=== PATIENT | female | born 1940 | race Caucasian/White ===

== ENCOUNTER 2019-04-30 05:31 | Inpatient (IN) | payer MEDICARE, BC ==
[2019-04-22 15:19] LABS: CLARITY,URINE SLIGHTLY CLOUDY (Clear); COLOR,URINE STRAW (Yellow); GLUCOSE, URINE NEGATIVE (Neg); KETONES,URINE NEGATIVE (Neg); LEUKOCYTE ESTERASE ,URINE TRACE (Neg); NITRITES, URINE POSITIVE (Neg); OCCULT BLOOD,URINE NEGATIVE (Neg); PH,URINE 5.5 (4.8-8.0); PROTEIN,URINE NEGATIVE (Neg); UROBILINOGEN,URINE 0.2 E.U/dL (0.2-1.0)
[2019-04-22 15:20] LABS: BASOPHILS # (AUTO) 0.1 X10'3 (0-0.2); EOSINOPHILS # (AUTO) 0.1 X10'3 (0-0.9); EOSINOPHILS % (AUTO) 1.7 % (0-6); LYMPHOCYTES # (AUTO) 1.6 X10'3 (1.1-4.8); LYMPHOCYTES % (AUTO) 21.3 % (21-51); MEAN CORPUSCULAR HEMOGLOBIN 29.6 PG (27.0-31.0); MEAN CORPUSCULAR HGB CONC 33.2 g/dL (33.0-36.5); MEAN CORPUSCULAR VOLUME 89.1 FL (78-98); MONOCYTES # (AUTO) 0.7 X10'3 (0-0.9); MONOCYTES % (AUTO) 9.4 % (2-12); NEUTROPHILS # (AUTO) 4.9 X10'3 (1.8-7.7); NEUTROPHILS % (AUTO) 66.6 % (42-75); PRE OP HEMATOCRIT 40.2 % (35.0-45.0); PRE OP HEMOGLOBIN 13.3 g/dL (12.0-16.0); PRE OP PLATELET COUNT 272 X10'3 (140-440); RED BLOOD COUNT 4.51 X10'6 (4.20-5.60); RED CELL DISTRIBUTION WIDTH 13.6 % (11.5-14.5)
[2019-04-22 15:22] LABS: UA COLLECTION TYPE CLN CATCH MIDSTREAM
[2019-04-22 15:24] LABS: BACTERIA,URINE 3+ /HPF (Neg); MUCUS STRANDS FEW /LPF (Neg); SQUAMOUS EPITHELIAL CELL,UR MODERATE /LPF (FEW)
[2019-04-22 15:25] LABS: RBC,URINE 0-2 /HPF (0-2); TRANSITIONAL EPI CELLS,URINE FEW /HPF; WBC CLUMPS,URINE FEW /HPF (NEGATIVE); WBC,URINE 0-4 /HPF (0-4)
[2019-04-22 15:32] LABS: PRE OP PROTIME 10.3 SECONDS (9.0-12.0)
[2019-04-22 15:34] LABS: ALBUMIN 3.6 G/DL (3.4-5.0); ALBUMIN/GLOBULIN RATIO 0.9 (1.1-1.5); ALKALINE PHOSPHATASE 88 IU/L (46-116); BLOOD UREA NITROGEN 15 MG/DL (7-18); BUN/CREATININE RATIO 17.2 (6.6-38.0); CHLORIDE 105 MMOL/L (99-107); CREATININE 0.87 MG/DL (0.40-0.90); PRE OP ALT 28 U/L (30-65); PRE OP ANION GAP 10 (8-16); PRE OP AST 21 U/L (10-37); PRE OP BILIRUB, TOTAL 0.2 MG/DL (0.0-1.0); PRE OP GLUCOSE 103 MG/DL (70-104); PRE OP POTASSIUM 3.9 MMOL/L (3.4-5.1); PRE OP SODIUM 142 MMOL/L (135-145); TOTAL CARBON DIOXIDE 27.3 MMOL/L (24-32); TOTAL PROTEIN 7.8 G/DL (6.4-8.2); eGFR 63 ML/MIN
[2019-04-30] VITALS (18 sets, daily range): BP systolic 109–175; BP diastolic 58–98
[~2019-04-30] VITALS: Ht 160 cm; Wt 86.2 kg
[~2019-04-30 05:31] MED LIST: ASPI81TA44 PO; DOCUMENT DATE & TIME OF BETA-BLOCKER PO ONE; LANS15CA18 PO; LISI-604 PO; METO50TA16 PO; PRAV40TA3 PO; cefazolin/dext.iso 2gm/50ml 50 ML IV ONE; famotidine 20mg tablet PO ONE; ringers solution, lacted 1,000 ML IV SCH; vancomycin inj 1,500 MG in normal saline 300ml IV soln IV ONE
[2019-04-30] MEDS ORDERED: LIDOcaine 1% (10mg/ml) 2ml vial ONE (06:21)
[2019-04-30] MEDS ORDERED: ketorolac trometh. 30mg/ml inj. ONE (06:49)
[2019-04-30] MEDS ORDERED: ROPIVAcaine 0.5% (5mg/ml) 30ml vial ONE ×2 (06:50)
[2019-04-30] MEDS ORDERED: tetracaine 1% (10mg/ml) pres. free inj. ONE (07:19)
[2019-04-30] MEDS ORDERED: fentaNYL/PF 50MCG/1 ML 2ML syringe ONE ×3 (07:22→09:28)
[2019-04-30] MEDS ORDERED: sevoflurane 250ml liquid IH ONE (07:23)
[2019-04-30] MEDS ORDERED: dexamethasone sod phosphate 10mg/ml inj ONE (07:23)
[2019-04-30] MEDS ORDERED: MIDAZolam 5mg/5ml vial ONE (07:23)
[2019-04-30] MEDS ORDERED: propofol inj 20 ML IV ONE (07:51)
[2019-04-30] MEDS ORDERED: rocuronium 10mg/ml inj IV ONE (08:24)
[2019-04-30] MEDS ORDERED: ringers solution, lacted 1,000 ML IV SCH (08:39)
[2019-04-30] MEDS ORDERED: ondansetron/PF 4mg/2ml inj IV PRN ×2 (08:40→11:00)
[2019-04-30] MEDS ORDERED: morphine 4 MG/ML inj SYRINge IV PRN ×2 (08:40)
[2019-04-30] MEDS ORDERED: meperidine/PF 25mg/ml syringe IV PRN ×3 (08:40)
[2019-04-30] MEDS ORDERED: proCHLORperazine 10 MG/2 ml inj IV PRN (08:40)
[2019-04-30] MEDS ORDERED: ceFAZolin 1000mg inj ONE (10:10)
[2019-04-30] MEDS ORDERED: acetaminophen 1,000mg/100ml IV 100 ML IV ONE (10:12)
[2019-04-30] MEDS ORDERED: ondansetron/PF 4mg/2ml inj ONE (10:17)
--- NOTE | 2019-04-30 10:50 | NUR ---
Received from OR via BED , accompanied by Anesthesiologist DR emanuel and report given by Anesthesiolgist. PATIENT WAKING UP, DENIES PAIN, V/S WNL, NEUROVASCULAR CHECKS INTACT, 18G PIV LUE , DRESSING TO left hip CDI and hv w/ minimal output and W/ COLD POWDER PACK AND IMMOBILIZER wedge pillow W/ SCD ON. F/C DRAINING CLEAR YELLOW URINE. .
[2019-04-30] MEDS ORDERED: bisacodyl 10mg suppository rectal RC PRN (11:00)
[2019-04-30] MEDS ORDERED: acetaminophen 325mg tablet PO PRN (11:00)
[2019-04-30] MEDS ORDERED: CADD PCA waste documentation MC PRN (11:00)
[2019-04-30] MEDS ORDERED: magnesium hydroxide 30ml (MOM) UD suspension PO PRN (11:00)
[2019-04-30] MEDS ORDERED: mag hydrox/Alum hydrox/simeth 30ml oral suspension PO PRN (11:00)
[2019-04-30] MEDS ORDERED: diphenhydrAMINE 25mg capsule PO PRN ×2 (11:00)
[2019-04-30] MEDS ORDERED: naloxone 0.4 mg/ml inj IV PRN (11:00)
[2019-04-30] MEDS ORDERED: HYDROmorphone/NS 1 mg/ml CADD 50 ML IV SCH (11:34)
[2019-04-30] MEDS: HYDROmorphone/NS 1 mg/ml CADD 50 ML IV SCH ×6 (11:52→23:00)
--- NOTE | 2019-04-30 12:00 | NUR ---
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 F/C DRAINING CLEAR YELLOW URINE. tele on, . PATIENT TAKEN TO WITH ALL BELONGINGS AND HOOKED UP TO MONITORS IN ROOM AND REPORT GIVEN TO LOGISTICS ASSOCIATE WHO HAS TAKEN OVER PATIENT CARE.
--- NOTE | 2019-04-30 12:00 | NUR ---
ASSUMED CARE, RECEIVED REPORT FROM ZACHERY RN, PT RESTING COMFORTABLY, POST OP VITALS STARTED, WILL CONTINUE TO MONITOR.
[2019-04-30] MEDS: gabapentin 300mg capsule PO SCH ×2 (13:00→20:08)
[2019-04-30] MEDS: acetaminophen 325mg tablet PO SCH ×2 (14:00→20:07)
[2019-04-30] MEDS: potassium cl 20mEq in 1/2 NS 1,000 ML IV SCH ×2 (16:29→18:58)
[2019-04-30] MEDS: ceFAZolin 1GM/D5W- ADD-VANTAGE 50 ML IV SCH (16:29)
--- NOTE | 2019-04-30 18:08 | NUR ---
REPORT GIVEN TO JILLIAN [place] RN
--- NOTE | 2019-04-30 18:10 | NUR ---
Received report from Cate MAYES & Talia student nurse. assumed care of patient.
--- NOTE | 2019-04-30 18:11 | NUR ---
Student documentation: I have reviewed and agree with all interventions, assessments performed and documented by ANALIA NAVARRO.
--- NOTE | 2019-04-30 18:11 | NUR ---
Student Medication Administration: For this medication-pass time frame, all medication were reviewed, dispensed, administered and documented per hospital policy by ANALIA NAVARRO.
[2019-04-30] MEDS ORDERED: vancomycin/NS 1 GM ADD-VANTAGE 250 ML IV SCH (20:00)
[2019-04-30] MEDS: sennosides 8.6mg tablet PO SCH (20:07)
[2019-04-30] MEDS: pravastatin 40mg tablet PO SCH (20:08)
[2019-04-30] MEDS: metoprolol tartrate 50mg tablet PO SCH (20:08)
[2019-04-30] MEDS: sennosides/docusate sodium tablet PO SCH (20:08)
[2019-05-01] MEDS: ceFAZolin 1GM/D5W- ADD-VANTAGE 50 ML IV SCH (00:03)
[2019-05-01] MEDS: HYDROmorphone/NS 1 mg/ml CADD 50 ML IV SCH ×7 (01:00→13:00)
[2019-05-01] MEDS: acetaminophen 325mg tablet PO SCH ×4 (01:36→21:18)
[2019-05-01 02:00] VITALS: BP_SYST 100; BP_SYST 140; BP_DIAS 52; BP_DIAS 59
[2019-05-01] MEDS: potassium cl 20mEq in 1/2 NS 1,000 ML IV SCH ×3 (03:02→21:15)
[2019-05-01 06:00] VITALS: BP 112/56
--- NOTE | 2019-05-01 06:10 | NUR ---
Patient in room ORTHO 4014. I have received report from JILLIAN MAYES and had the opportunity to ask questions and assume patient care.
[2019-05-01 06:13] LABS: BASOPHILS % (AUTO) 0.1 % (0-1); EOSINOPHILS % (AUTO) 0 % (0-6); HEMATOCRIT 29.2 % (35.0-45.0); LYMPHOCYTES % (AUTO) 9.3 % (21-51); MEAN CORPUSCULAR HEMOGLOBIN 30.4 PG (27.0-31.0); MEAN CORPUSCULAR HGB CONC 34.2 g/dL (33.0-36.5); MEAN CORPUSCULAR VOLUME 88.8 FL (78-98); MONOCYTES # (AUTO) 1.4 X10'3 (0-0.9); MONOCYTES % (AUTO) 13.3 % (2-12); NEUTROPHILS # (AUTO) 8.2 X10'3 (1.8-7.7); NEUTROPHILS % (AUTO) 77.3 % (42-75); PLATELET COUNT 204 X10'3 (140-440); RED BLOOD COUNT 3.29 X10'6 (4.20-5.60); RED CELL DISTRIBUTION WIDTH 13.8 % (11.5-14.5); WHITE BLOOD COUNT 10.7 X10'3 (4.5-11.0)
--- NOTE | 2019-05-01 06:15 | NUR ---
Gave report to Cate MAYES & Talia student nurse.
[2019-05-01 07:26] LABS: ANION GAP 8 (8-16); CHLORIDE 105 MMOL/L (99-107); POTASSIUM 4.8 MMOL/L (3.5-5.1); SODIUM 138 MMOL/L (135-145); TOTAL CARBON DIOXIDE 25.4 MMOL/L (24-32)
--- NOTE | 2019-05-01 08:10 | NUR ---
HEMOVAC CAME APART WHILE WORKING WITH THERAPY. REMOVED THE REST OF THE DRAIN FROM THE PATIENT. WILL CONTINUE TO MONITOR.
[2019-05-01] MEDS: gabapentin 300mg capsule PO SCH ×3 (09:07→21:18)
[2019-05-01] MEDS: pantoprazole 40mg Tablet.DR PO SCH (09:07)
[2019-05-01] MEDS: metoprolol tartrate 50mg tablet PO SCH ×2 (09:07→21:17)
[2019-05-01] MEDS: sennosides/docusate sodium tablet PO SCH ×2 (09:08→21:20)
[2019-05-01] MEDS: enoxaparin 40mg/0.4ml syringe SQ SCH (09:10)
[2019-05-01 10:00] VITALS: BP 110/62
[2019-05-01 14:00] VITALS: BP 112/51
[2019-05-01] MEDS ORDERED: oxyCODONE/APAP 5-325mg tablet PO PRN (14:15)
--- NOTE | 2019-05-01 17:55 | NUR ---
Student documentation: I have reviewed and agree with all interventions, assessments performed and documented by ANALIA NAVARRO. Student Medication Administration: For this medication-pass time frame, all medication were reviewed, dispensed, administered and documented per hospital policy by ANALIA NAVARRO.
[2019-05-01 18:00] VITALS: BP 99/50
--- NOTE | 2019-05-01 18:08 | NUR ---
Problems reprioritized. Patient report given, questions answered & plan of care reviewed with SLAVA Martínez RN .
--- NOTE | 2019-05-01 19:40 | NUR ---
Patient in room ORTHO 4014. I have received report from GERBER Esposito and had the opportunity to ask questions and assume patient care.
[2019-05-01] MEDS: sennosides 8.6mg tablet PO SCH (21:17)
[2019-05-01] MEDS: pravastatin 40mg tablet PO SCH (21:18)
[2019-05-01 22:00] VITALS: BP 117/44
[2019-05-02] MEDS: acetaminophen 325mg tablet PO SCH (02:00)
[2019-05-02] MEDS: potassium cl 20mEq in 1/2 NS 1,000 ML IV SCH (02:58)
[2019-05-02 06:00] VITALS: BP 104/65
--- NOTE | 2019-05-02 06:15 | NUR ---
Patient in room ORTHO 4014. I have received report from SLAVA MAYES and had the opportunity to ask questions and assume patient care.
--- NOTE | 2019-05-02 06:24 | NUR ---
Problems reprioritized. Patient report given, questions answered & plan of care reviewed with GERBER Esposito.
[2019-05-02 06:40] LABS: BASOPHILS % (AUTO) 0.1 % (0-1); EOSINOPHILS % (AUTO) 0.2 % (0-6); HEMATOCRIT 27.3 % (35.0-45.0); HEMOGLOBIN 9.1 g/dl (12.0-16.0); LYMPHOCYTES # (AUTO) 1.2 X10'3 (1.1-4.8); LYMPHOCYTES % (AUTO) 9.6 % (21-51); MEAN CORPUSCULAR HEMOGLOBIN 29.7 PG (27.0-31.0); MEAN CORPUSCULAR HGB CONC 33.3 g/dL (33.0-36.5); MEAN PLATELET VOLUME 8.3 FL (7.4-10.4); MONOCYTES # (AUTO) 1.5 X10'3 (0-0.9); MONOCYTES % (AUTO) 11.8 % (2-12); NEUTROPHILS # (AUTO) 9.8 X10'3 (1.8-7.7); NEUTROPHILS % (AUTO) 78.3 % (42-75); PLATELET COUNT 198 X10'3 (140-440); RED BLOOD COUNT 3.07 X10'6 (4.20-5.60); RED CELL DISTRIBUTION WIDTH 14.1 % (11.5-14.5); WHITE BLOOD COUNT 12.5 X10'3 (4.5-11.0)
[2019-05-02] MEDS: gabapentin 300mg capsule PO SCH ×3 (07:39→20:34)
[2019-05-02] MEDS: pantoprazole 40mg Tablet.DR PO SCH (07:39)
[2019-05-02] MEDS: sennosides/docusate sodium tablet PO SCH ×2 (07:39→19:21)
[2019-05-02] MEDS: metoprolol tartrate 50mg tablet PO SCH ×2 (07:40→19:21)
[2019-05-02] MEDS: enoxaparin 40mg/0.4ml syringe SQ SCH (07:40)
[2019-05-02 10:00] VITALS: BP 100/46
--- NOTE | 2019-05-02 12:36 | NUR ---
Joint replacement consult: Pt POD#2 s/p L ISAURO per MD note. PO improved to 75-100% past 2 days meeting healing needs. LBM 04/30. Labs WNL. No current nutrition concerns at this time. Will continue to monitor. Addendum: 05/02/19 at [address] Amended: Links added.
[2019-05-02 17:00] VITALS: BP 100/46
--- NOTE | 2019-05-02 18:10 | NUR ---
Problems reprioritized. Patient report given, questions answered & plan of care reviewed with GORDO MAYES.
[2019-05-02 19:20] VITALS: BP 129/57
[2019-05-02 20:00] VITALS: BP 114/49
[2019-05-02] MEDS: pravastatin 40mg tablet PO SCH (20:34)
[2019-05-02] MEDS: sennosides 8.6mg tablet PO SCH (20:34)
[2019-05-03] MEDS: oxyCODONE/APAP 5-325mg tablet PO PRN ×2 (05:29→20:33)
[2019-05-03 06:00] VITALS: BP 116/48
--- NOTE | 2019-05-03 06:05 | NUR ---
Patient in room ORTHO 4014. I have received report from GORDO MAYES and had the opportunity to ask questions and assume patient care.
--- NOTE | 2019-05-03 06:16 | NUR ---
Problems reprioritized. Patient report given, questions answered & plan of care reviewed with Cate MAYES.
[2019-05-03 07:00] LABS: BASOPHILS % (AUTO) 0.2 % (0-1); EOSINOPHILS # (AUTO) 0.1 X10'3 (0-0.9); EOSINOPHILS % (AUTO) 0.4 % (0-6); HEMATOCRIT 26.8 % (35.0-45.0); LYMPHOCYTES # (AUTO) 1.6 X10'3 (1.1-4.8); LYMPHOCYTES % (AUTO) 13.1 % (21-51); MEAN CORPUSCULAR HEMOGLOBIN 29.9 PG (27.0-31.0); MEAN CORPUSCULAR HGB CONC 33.7 g/dL (33.0-36.5); MEAN CORPUSCULAR VOLUME 88.6 FL (78-98); MEAN PLATELET VOLUME 7.8 FL (7.4-10.4); MONOCYTES # (AUTO) 1.2 X10'3 (0-0.9); MONOCYTES % (AUTO) 9.7 % (2-12); NEUTROPHILS # (AUTO) 9.6 X10'3 (1.8-7.7); NEUTROPHILS % (AUTO) 76.6 % (42-75); PLATELET COUNT 215 X10'3 (140-440); RED BLOOD COUNT 3.02 X10'6 (4.20-5.60); WHITE BLOOD COUNT 12.5 X10'3 (4.5-11.0)
[2019-05-03] MEDS: gabapentin 300mg capsule PO SCH ×3 (08:48→20:32)
[2019-05-03] MEDS: metoprolol tartrate 50mg tablet PO SCH ×2 (08:51→20:37)
[2019-05-03] MEDS: pantoprazole 40mg Tablet.DR PO SCH (08:52)
[2019-05-03] MEDS: sennosides/docusate sodium tablet PO SCH ×2 (08:52→20:32)
[2019-05-03] MEDS: enoxaparin 40mg/0.4ml syringe SQ SCH (08:52)
[2019-05-03 10:00] VITALS: BP_SYST 103; BP_SYST 113; BP_DIAS 45; BP_DIAS 74
[2019-05-03 18:00] VITALS: BP 111/54
--- NOTE | 2019-05-03 18:05 | NUR ---
Problems reprioritized. Patient report given, questions answered & plan of care reviewed with JAMI MAYES.
[2019-05-03] MEDS: sennosides 8.6mg tablet PO SCH (20:32)
[2019-05-03] MEDS: pravastatin 40mg tablet PO SCH (20:41)
[2019-05-03 22:00] VITALS: BP 106/48
[2019-05-04] MEDS: oxyCODONE/APAP 5-325mg tablet PO PRN (05:25)
--- NOTE | 2019-05-04 06:19 | NUR ---
Problems reprioritized. Patient report given, questions answered & plan of care reviewed with GERBER PARDO.
[2019-05-04 06:45] VITALS: BP 122/52
[2019-05-04 07:10] VITALS: BP 113/58
[2019-05-04] MEDS: metoprolol tartrate 50mg tablet PO SCH (07:13)
[2019-05-04] MEDS: sennosides/docusate sodium tablet PO SCH (07:14)
[2019-05-04] MEDS: pantoprazole 40mg Tablet.DR PO SCH (07:15)
[2019-05-04] MEDS: gabapentin 300mg capsule PO SCH ×2 (07:15→12:45)
[2019-05-04] MEDS: enoxaparin 40mg/0.4ml syringe SQ SCH (07:16)
[2019-05-04 10:19] VITALS: BP 133/58
== END 2019-05-04 14:20 | DRG 470 ==
LOC: PAS IN 05:31 → EDSTATUS 07:30 → ORTHO 4S 12:00
PROVIDERS: ADMIT Orthopaedic Surgery; ATTEND Orthopaedic Surgery
PROC: 0SRB0J9 Replacement of Left Hip Joint with Synthetic Substitute, Cemented, Open Approach (ICD-10-PCS; principal; 2019-04-30 07:23)
DX: M16.12 Unilateral primary osteoarthritis, left hip (principal); D62 Acute posthemorrhagic anemia; I10 Essential (primary) hypertension; I48.91 Unspecified atrial fibrillation; Z96.652 Presence of left artificial knee joint; K21.9 Gastro-esophageal reflux disease without esophagitis; E78.5 Hyperlipidemia, unspecified; M17.11 Unilateral primary osteoarthritis, right knee; E66.8 Other obesity; Z96.641 Presence of right artificial hip joint; Z88.2 Allergy status to sulfonamides; Z90.49 Acquired absence of other specified parts of digestive tract; Z90.710 Acquired absence of both cervix and uterus; Z80.9 Family history of malignant neoplasm, unspecified
CPT/HCPCS: 36415; 73502; 76000; 80051; 80053; 81001; 82948; 85025; 85610; 85730; 86885; 86900; 86901; 87077; 87081; 87088; 87186; 93005; 97110; 97112; 97116; 97161; 97530; A6250; A6258; A6446; A6449; A6455; A7000; C1758; C1776; G0378; J0131; J0690; J1100; J1170; J1644; J1650; J1885; J2001; J2175; J2250; J2405; J2704; J2795; J3010; J3370; J3480; J7030; J7120

== ENCOUNTER 2020-01-14 08:48 | Day surgery (SDC) | payer MEDICARE, BC ==
[2020-01-08 15:23] LABS: BASOPHILS % (AUTO) 0.4 % (0-1); EOSINOPHILS # (AUTO) 0.2 X10'3 (0-0.9); EOSINOPHILS % (AUTO) 2.4 % (0-6); LYMPHOCYTES # (AUTO) 1.7 X10'3 (1.1-4.8); LYMPHOCYTES % (AUTO) 21.5 % (21-51); MEAN CORPUSCULAR HEMOGLOBIN 29.1 PG (27.0-31.0); MEAN CORPUSCULAR HGB CONC 32.8 g/dL (33.0-36.5); MEAN CORPUSCULAR VOLUME 88.6 FL (78-98); MEAN PLATELET VOLUME 7.7 FL (7.4-10.4); MONOCYTES # (AUTO) 0.7 X10'3 (0-0.9); MONOCYTES % (AUTO) 9.7 % (2-12); NEUTROPHILS # (AUTO) 5.1 X10'3 (1.8-7.7); PRE OP HEMATOCRIT 40.3 % (35.0-45.0); PRE OP HEMOGLOBIN 13.2 g/dL (12.0-16.0); PRE OP PLATELET COUNT 288 X10'3 (140-440); RED BLOOD COUNT 4.55 X10'6 (4.20-5.60); RED CELL DISTRIBUTION WIDTH 14.1 % (11.5-14.5)
[2020-01-08 15:36] LABS: ALBUMIN 3.8 G/DL (3.4-5.0); ALKALINE PHOSPHATASE 86 IU/L (46-116); BLOOD UREA NITROGEN 17 MG/DL (7-18); BUN/CREATININE RATIO 20.7 (6.6-38.0); CALCIUM 9.5 MG/DL (8.5-10.1); CHLORIDE 107 MMOL/L (99-107); CREATININE 0.82 MG/DL (0.40-0.90); PRE OP ALT 25 U/L (30-65); PRE OP ANION GAP 8 (8-16); PRE OP AST 27 U/L (10-37); PRE OP BILIRUB, TOTAL 0.3 MG/DL (0.0-1.0); PRE OP GLUCOSE 125 MG/DL (70-104); PRE OP POTASSIUM 4.2 MMOL/L (3.4-5.1); PRE OP SODIUM 143 MMOL/L (135-145); TOTAL CARBON DIOXIDE 27.9 MMOL/L (24-32); TOTAL PROTEIN 7.7 G/DL (6.4-8.2); eGFR 67 ML/MIN
[2020-01-14] VITALS (18 sets, daily range): BP systolic 119–155; BP diastolic 57–78
[~2020-01-14] VITALS: Ht 160 cm; Wt 85.3 kg
[~2020-01-14 08:48] MED LIST changes: -ASPI81TA44 PO; -LANS15CA18 PO; +PANT20TA3 PO; +VANCOMYCIN 1,500MG inj. 1,500 MG in normal saline 500ml IV soln 500 ML IV ONE; +ceFAZolin 2gm in dextrose, iso 50 ML IV ONE; -cefazolin/dext.iso 2gm/50ml 50 ML IV ONE; +vancomycin 1,500 MG in NS 300ml IV soln IV ONE; -vancomycin inj 1,500 MG in normal saline 300ml IV soln IV ONE
[2020-01-14] MEDS ORDERED: bisacodyl 10mg suppository rectal RC PRN (11:05)
[2020-01-14] MEDS ORDERED: diphenhydrAMINE 25mg capsule PO PRN ×2 (11:05)
[2020-01-14] MEDS ORDERED: ondansetron/PF 4mg/2ml inj IV PRN ×2 (11:05→12:00)
[2020-01-14] MEDS ORDERED: magnesium hydroxide 30ml (MOM) UD suspension PO PRN (11:05)
[2020-01-14] MEDS ORDERED: naloxone 0.4 mg/ml inj IV PRN (11:05)
[2020-01-14] MEDS ORDERED: HYDROcodone/acetaminophen 10/325mg tab PO PRN ×2 (11:05)
[2020-01-14] MEDS ORDERED: CADD PCA waste documentation MC PRN (11:05)
[2020-01-14] MEDS ORDERED: metoclopramide 5 mg/ml inj IV PRN (11:05)
[2020-01-14] MEDS ORDERED: acetaminophen 325mg tablet PO PRN (11:05)
[2020-01-14] MEDS ORDERED: ringers solution, lacted 1,000 ML IV SCH (11:57)
[2020-01-14] MEDS ORDERED: morphine 2 MG/ML inj. syringe IV PRN (12:00)
[2020-01-14] MEDS ORDERED: meperidine/PF 25mg/ml syringe IV PRN ×3 (12:00)
[2020-01-14] MEDS ORDERED: proCHLORperazine 10 MG/2 ml inj IV PRN (12:00)
[2020-01-14] MEDS ORDERED: morphine 4 MG/ML inj SYRINge IV PRN (12:00)
[2020-01-14] MEDS ORDERED: acetaminophen 1,000mg/100ml IV 100 ML IV PRN (12:00)
[2020-01-14] MEDS ORDERED: BUPIVAcaine/PF 2.5 mg/ml (0.25%) 30ml vial ONE (12:34)
[2020-01-14] MEDS ORDERED: triamcinolone acetonide 40mg/ml inj ONE (12:34)
[2020-01-14] MEDS ORDERED: sevoflurane 250ml liquid IH ONE (12:42)
[2020-01-14] MEDS ORDERED: midazolam 2 mg/2 ml injection ONE (12:59)
[2020-01-14] MEDS ORDERED: fentaNYL/PF 50MCG/1 ML 2ML syringe ONE (13:00)
[2020-01-14] MEDS ORDERED: LIDOcaine 2% (20mg/ml) 5ml vial ONE (13:01)
[2020-01-14] MEDS ORDERED: propofol inj 20 ML IV ONE (13:01)
[2020-01-14] MEDS ORDERED: ondansetron/PF 4mg/2ml inj ONE (13:01)
[2020-01-14] MEDS ORDERED: dexamethasone sod phosphate 4mg/ml inj. ONE (13:01)
--- NOTE | 2020-01-14 13:59 | NUR ---
RECEIVED FROM OR VIA [facility] ACCOMPANIED BY ANESTHESIOLOGIST DR URIBE, REPORT GIVEN.PT DROWSY BUT AWAKENS EASILY, DENIES PAIN. LEFT KNEE DRESSING CDI, LEG ELEVATED, ICE APPLIED. VSS, SKIN PINK AND WARM, VALDES, GOOD CAP REFILL, PERIPHERAL PULSES PALPABLE. 20 GAUGE PIV L HAND PATENT AND RUNNING LR AT 100 ML/HR. RESTING COMFORTABLY
[2020-01-14] MEDS: HYDROmorphone/NS 1 mg/ml CADD 50 ML IV SCH ×7 (15:00→23:00)
--- NOTE | 2020-01-14 15:29 | NUR ---
TRANSFERRED VIA [facility]URNEY ACCOMPANIED BY MYSELF, REPORT GIVEN. AWAKE AND ALERT , DENIES PAIN. LEFT KNEE DRESSING CDI, LEG ELEVATED, ICE APPLIED. VSS, SKIN PINK AND WARM, VALDES, GOOD CAP REFILL, PERIPHERAL PULSES PALPABLE. 20 GAUGE PIV L HAND PATENT AND RUNNING LR AT 100 ML/HR. RESTING COMFORTABLY, LEFT IN CARE OF FAVULA RN
[2020-01-14] MEDS: acetaminophen 325mg tablet PO SCH ×2 (17:19→20:08)
[2020-01-14] MEDS: ceFAZolin 1GM/D5W- ADD-VANTAGE 50 ML IV SCH (17:20)
[2020-01-14] MEDS: potassium cl 20mEq in 1/2 NS 1,000 ML IV SCH ×2 (17:21→19:04)
--- NOTE | 2020-01-14 18:20 | NUR ---
Problems reprioritized. Patient report given, questions answered & plan of care reviewed with Beverley MAYES.
[2020-01-14] MEDS ORDERED: vancomycin/NS 1 GM ADD-VANTAGE 250 ML IV SCH (20:00)
[2020-01-14] MEDS: ascorbic acid 500mg tablet PO SCH (20:08)
[2020-01-14] MEDS: sennosides/docusate sodium tablet PO SCH (20:09)
[2020-01-14] MEDS: metoprolol tartrate 50mg tablet PO SCH (20:10)
[2020-01-14] MEDS ORDERED: pravastatin 40mg tablet PO SCH (21:00)
[2020-01-14] MEDS ORDERED: sennosides 8.6mg tablet PO SCH (21:00)
[2020-01-15] MEDS: ceFAZolin 1GM/D5W- ADD-VANTAGE 50 ML IV SCH (00:12)
[2020-01-15] MEDS: HYDROmorphone/NS 1 mg/ml CADD 50 ML IV SCH ×4 (01:00→07:00)
[2020-01-15 02:00] VITALS: BP 115/61
[2020-01-15] MEDS: acetaminophen 325mg tablet PO SCH ×2 (02:00→07:24)
[2020-01-15] MEDS: potassium cl 20mEq in 1/2 NS 1,000 ML IV SCH ×2 (03:00→11:04)
[2020-01-15 06:00] VITALS: BP 132/57
--- NOTE | 2020-01-15 06:05 | NUR ---
Patient in room ORTHO 4009. I have received report from Lorie and had the opportunity to ask questions and assume patient care.
--- NOTE | 2020-01-15 06:08 | NUR ---
Problems reprioritized. Patient report given, questions answered & plan of care reviewed with GERBER Levy.
[2020-01-15] MEDS: ascorbic acid 500mg tablet PO SCH (07:23)
[2020-01-15] MEDS: sennosides/docusate sodium tablet PO SCH (07:23)
[2020-01-15] MEDS: metoprolol tartrate 50mg tablet PO SCH (07:25)
[2020-01-15] MEDS ORDERED: pantoprazole 40mg Tablet.DR PO SCH (07:30)
[2020-01-15 07:42] LABS: BASOPHILS % (AUTO) 0.1 % (0-1); EOSINOPHILS % (AUTO) 0 % (0-6); HEMATOCRIT 39.8 % (35.0-45.0); HEMOGLOBIN 12.8 g/dl (12.0-16.0); LYMPHOCYTES # (AUTO) 1.1 X10'3 (1.1-4.8); LYMPHOCYTES % (AUTO) 10.8 % (21-51); MEAN CORPUSCULAR HEMOGLOBIN 28.3 PG (27.0-31.0); MEAN CORPUSCULAR HGB CONC 32.1 g/dL (33.0-36.5); MEAN CORPUSCULAR VOLUME 88.3 FL (78-98); MEAN PLATELET VOLUME 8.5 FL (7.4-10.4); MONOCYTES # (AUTO) 0.6 X10'3 (0-0.9); MONOCYTES % (AUTO) 6.6 % (2-12); NEUTROPHILS # (AUTO) 8.1 X10'3 (1.8-7.7); NEUTROPHILS % (AUTO) 82.5 % (42-75); PLATELET COUNT 270 X10'3 (140-440); RED BLOOD COUNT 4.51 X10'6 (4.20-5.60); RED CELL DISTRIBUTION WIDTH 13.8 % (11.5-14.5); WHITE BLOOD COUNT 9.8 X10'3 (4.5-11.0)
--- NOTE | 2020-01-15 07:57 | NUR ---
Student Medication Administration: For this medication-pass time frame, all medication were reviewed, dispensed, administered and documented per hospital policy by [facility] Student Nurse.
[2020-01-15] MEDS ORDERED: multivitamins, therapeutics tablet PO SCH (08:00)
[2020-01-15] MEDS ORDERED: enoxaparin 40mg/0.4ml syringe SQ SCH (08:00)
[2020-01-15 08:29] LABS: ANION GAP 11 (8-16); CHLORIDE 105 MMOL/L (99-107); POTASSIUM 4.7 MMOL/L (3.5-5.1); SODIUM 140 MMOL/L (135-145); TOTAL CARBON DIOXIDE 24.5 MMOL/L (24-32)
[2020-01-15 10:00] VITALS: BP 119/50
--- NOTE | 2020-01-15 10:58 | NUR ---
Student documentation: I have reviewed interventions, assessments performed and documented by [facility] Student Nurse.
--- NOTE | 2020-01-15 12:15 | NUR ---
Reviewed discharge instructions with pt. Pt verbalized understanding. Pt stated she already has a follow up appt with surgeon. Pt is able to dress herself, is up walking around, is alert and oriebted and does not c/o pain at this time. Pt was wheeled downstairs to be driven home by her spouse.
--- NOTE | 2020-01-15 12:31 | NUR ---
Patient in room ORTHO 4009B. I have received report from Mildred MAYES and had the opportunity to ask questions and assume patient care. Addendum: 01/15/20 at 1232 by Emelyn FERRIS Pt discharged at 1230
== END 2020-01-15 12:20 | disposition home or self-care (01) ==
LOC: PAS IN 08:48 → PAS 08:48 → UNDOADMIN 08:48 → EDSTATUS 12:15 → ORTHO 4S 16:38 → PAS IN 16:38 → UNDODISIN 01-15 12:20 → PAS 01-15 12:20
PROVIDERS: ATTEND Orthopaedic Surgery
DX: S83.232A Complex tear of medial meniscus, current injury, left knee, initial encounter (principal); S83.272A Complex tear of lateral meniscus, current injury, left knee, initial encounter; M65.862 Other synovitis and tenosynovitis, left lower leg; I10 Essential (primary) hypertension; K21.9 Gastro-esophageal reflux disease without esophagitis; E78.5 Hyperlipidemia, unspecified; M17.11 Unilateral primary osteoarthritis, right knee; I48.0 Paroxysmal atrial fibrillation; E66.8 Other obesity; Z68.32 Body mass index [BMI] 32.0-32.9, adult; Z88.2 Allergy status to sulfonamides; Z88.5 Allergy status to narcotic agent; Z11.59 Encounter for screening for other viral diseases; Z79.899 Other long term (current) drug therapy; Z96.643 Presence of artificial hip joint, bilateral; Z96.652 Presence of left artificial knee joint; Z98.890 Other specified postprocedural states; X58.XXXA Exposure to other specified factors, initial encounter; Y93.89 Activity, other specified; Y92.89 Other specified places as the place of occurrence of the external cause; Y99.8 Other external cause status
CPT/HCPCS: 29873; 29880; 36415; 80051; 80053; 82948; 85025; 93005; 97116; 97161; 97530; 97535; J0690; J1100; J1170; J2001; J2250; J2405; J2704; J3010; J3301; J3370; J3490; J7040; U0003; A4215; A4618; A6250; A6449; A7000; G0378; J1650; J3480; J7120